=== PATIENT | male | born 1990 | race Caucasian/White ===

== ENCOUNTER 2016-08-29 04:38 | Emergency (ER) | payer MEDICARE ==
[~2016-08-29] VITALS: Ht 190.5 cm; Wt 97.5 kg
[2016-08-29 05:11] VITALS: BP_SYST 139
[2016-08-29] MEDS ORDERED: KETOROLAC TROMETHAMINE 60 MG/2 ML VIAL IM ONE (06:00)
[2016-08-29] MEDS ORDERED: ACETAMINOPHEN 500 MG TABLET PO ONE (06:15)
[2016-08-29 06:58] VITALS: BP_SYST 127
== END 2016-08-29 06:58 | disposition home or self-care (01) ==
LOC: SED 04:38
DX: M54.9 Dorsalgia, unspecified (principal); T48.1X5A Adverse effect of skeletal muscle relaxants [neuromuscular blocking agents], initial encounter; R11.2 Nausea with vomiting, unspecified; Z88.8 Allergy status to other drugs, medicaments and biological substances; Y92.89 Other specified places as the place of occurrence of the external cause
CPT/HCPCS: 96372; 99283; J1885